=== PATIENT | male | born 1945 | race Caucasian/White ===

== ENCOUNTER 2016-03-30 19:04 | Inpatient (IN) | payer MEDICARE, OTHER ==
[~2016-03-30] VITALS: Ht 170.2 cm; Wt 65.6 kg
[2016-03-30 19:09] VITALS: BP 139/91
[2016-03-30 19:30] LABS: URINE BLOOD TRACE-LYSED (NEG)
--- NOTE | 2016-03-30 19:30 | Emergency Room Report ---
History of Present Illness Time Seen by Urszula Presenting Problem in Triage Pt arrived:Walked Presenting Problem:PT COMPLAINING OF LOWER MIDDLE ABDOMINAL PAIN. PT STATES THAT IT STARTED THIS AM AND HAS GOTTEN WORSE THROUGHOUT THE DAY. PT STATES HE HAS ALSO BEEN VOMITTING. 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 N Clinical Suspician of Infection? N Mental Status: 1 - Regular (Normal Baseline) Sepsis Risk:Low Sepsis Risk Have you (or family members/close friends) recently traveled outside the [place]? N If Yes, where/when: Have you had exposure to infectious disease within the past month? N TB? Other? Specify: Source patient, RN notes reviewed Exam Limitations no limitations Comment comes to the ED with lower abdominal pain that started this morning and has gotten worse as the day has progressed. Also some vomiting but no diarrhea. History of Diverticulitis and this feels similar to that but he says he has been having problems with this for a year off and on Cardiac Chest Pain Chest pain indicative of cardiac No ALLERGIES Coded Allergies: Penicillins (03/30/16) Sulfa (Sulfonamide Antibiotics) (03/30/16) Home Medications Reported Medications No Known Home Medications History Medical History General CAD? No Angina: No [place]: No Hypertension? No Hyperlipidemia? Yes CHF? No DVT? No PE? No COPD? No Asthma? No Anemia? No GERD? No Gastric ulcers? No GI Bleed? No Hernia? No Thyroid Problems? No Hypothyroidism? No CVA? No Seizures? No Diabetes? No Renal Insuffiency? No End Stage Renal Disease? No UTI? No Stones? No BPH? No GB Disease: No Nephritic Syndrome? No Asplenia? No Hepatitis? No Sickle Cell Disease? No Arthritis? No Migraines? No Cataracts? No Glaucoma? No MRSA? No HIV? No TB? No Anxiety? No Depression? No Cancer? No More? No Immunization Hx DT/Tetanus 1-4 Years Ago Surgical Hx Previous Surgery?Y LEFT THUMB AND WRIST TONSILS Social History Smoking Hx Smoker: Current Every Day Smoker Tobacco: Yes Type Cigarettes Packs/day < 1 Pack Are you/the child exposed to second-hand smoke: Yes Alcohol Alcohol: No Review of Systems All Other Systems Reviewed and Negative Constitutional see HPI Gastrointestinal see HPI Physical Exam Vital Signs Vital Signs Date Time Temp Pulse Resp B/P Pulse O2 O2 Flow FiO2 Ox Delivery Rate 03/30 2159 94 18 136/72 98 03/30 2049 91 18 156/81 95 03/30 1956 16 03/30 1909 99.9 92 18 139/91 97 General Appearance normal appearance, WD/WN, mild distress Respiratory Status No: respiratory distress. Cardiovascular normal exam, regular rate/rhythm Gastrointestinal rebound, tenderness (in lower abdomen ) Neurologic alert, lockstitch front maker II-XII nml as tested, normal exam Medical Decision Making LABS/Meds/Orders Pt receiving controlled substance in ED? Yes Neymar was queried for this patient? Yes Reference #: [id number] Results/Orders Laboratory Tests 03/30/162125: Lactic Acid 1.9 03/30/161929: Sodium 144, Potassium 4.6, Chloride 109 H, Carbon Dioxide 27, BUN 17, Creatinine 1.3, Estimated Creat Clear 48 L, Estimated GFR (MDRD) 55, Glucose 106, Calcium 8.8, Total Bilirubin 0.6, AST 12 L, ALT 24, Alkaline Phosphatase 131 H, Total Protein 7.0, Albumin 3.6, Globulin 3.4 H, Albumin/Globulin Ratio 1.1, Amylase 94, Lipase 183, WBC 17.0 H, RBC 4.76, Hgb 15.2, Hct 44.9, MCV 94.4 , RDW 14.2, Plt Count 208, Gran % 89.7 H, Gran # 15.2 H, Total Counted 100, Lymphocytes % 7.6 L, Monocytes % 2.7, Neutrophils 84 H, Band Neutrophils 9 H, Lymphocytes (Manual) 5 L, Lymphocytes # 1.3, Monocytes (Manual) 2, Monocytes # 0.5, RBC/WBC/PLT Morphology NORMAL, Platelet Estimate NORMAL, PUBS MCHC 33.9, MCH 31.9 H 03/30/161914: Urine Color YELLOW, Urine Appearance CLEAR, Urine pH 7.0, Ur Specific [place] 1.020, Urine Protein 1+ H, Urine Ketones NEGATIVE, Urine Blood TRACE-LYSED, Urine Nitrate NEGATIVE, Urine Bilirubin 1+ H, Urine Urobilinogen 1.0, Ur Leukocyte Esterase NEGATIVE, Urine RBC 3-5, Urine WBC OCC, Ur Squamous Epith Cells NONE, Urine Bacteria TRACE, Urine Mucus 4+, Urine Glucose NEGATIVE Current Medication Orders Sig/[place] Start time Last Medication Dose Route Stop Time Status Admin Levofloxacin/Dextrose 100 ML .STK-MED ONE 03/30 2126 DC IV Levofloxacin/Dextrose 100 ML ONCE ONE 03/30 2114 DCr 03/30 IV 03/30 Metronidazole 100 ML ONCE ONE 03/30 2114 DC IV 03/30 2213 Diatrizoate Meglum/ 30 ML ONCE ONE 03/30 2044 DC 03/30 Diatrizoate Sod PO 03/30 Sodium Chloride 1,000 ML .Q1H1M 03/30 2044 DC 03/30 IV 03/30 Sodium Chloride 10 ML PRN PRN 03/30 2044 AC IV 03/31 2036 Sodium Chloride 1,000 ML .Q8H 03/30 2044 AC IV 03/31 0837 Sodium Chloride 10 ML PRN PRN 03/30 2044 AC IV 03/31 2036 Sodium Chloride 1,000 ML .STK-MED ONE 03/30 2039 DC IV Diatrizoate Meglum/ 0 .STK-MED ONE 03/30 2038 DC Diatrizoate Sod .ROUTE Sodium Chloride 1,000 ML .STK-MED ONE 03/30 1953 DC IV Morphine Sulfate 0 .STK-MED ONE 03/30 1952 DC .ROUTE Ondansetron HCl 0 .STK-MED ONE 03/30 1952 DC .ROUTE Morphine Sulfate 2 MG ONCE ONE 03/30 1944 DC 03/30 IV 03/30 Ondansetron HCl 4 MG ONCE ONE 03/30 1944 CAN IV 03/30 1945 Ondansetron HCl 4 MG ONCE ONE 03/30 1929 DC 03/30 IV 03/30 Sodium Chloride 10 ML PRN PRN 03/30 1929 AC IV 03/31 1920 Sodium Chloride 1,000 ML .Q1H1M 03/30 1929 DC 03/30 IV 03/30 Orders Procedure Date/time Status DIET-NOTHING BY MOUTH 03/31 B Active CULTURE, BLOOD 03/30 2112 Active LACTIC ACID 03/[address] ABD & PELVIS W/ CONTRAST 03/[address] ABD/PELVIS REQ 03/[address] ABD & PELVIS W/O CONTRAST 03/30 1930 Active DIFFERENTIAL-WBC 03/[address] ABD/PELVIS REQ 03/30 1921 Complete IV SALINE LOCK 03/30 1921 Active URINALYSIS/COMPLETE 03/30 1921 Complete LIPASE 03/30 1921 Complete CBC WITH AUTO DIFF 03/30 1921 Complete CHEM 12 PROFILE 03/30 1921 Complete AMYLASE 03/30 1921 Complete XRAY/CT/US XRAY/CT/US CT abdomen, pelvis CT interpretation by discussed w/radiologist Time results known: 2107 CT Results aBNORMAL ILL-DEFINED, 2.5 CM FOCUS OF SOFT TISSUE ATTENUATION AND FAT abnormal, ill-defined 2.5 cm focus of soft tissue attentuation and fat stranding within the posterior aspect of the mid pelvis. Findings may represent infectious/inflammatory process such as residual infection/inflammation from prior diverticulitis, but a neoplastic process such as carcinoid or desmoplastic tumor possible. Recommend further evaluation. Incidental non-acute findings as described above. Departure Departure Time of Disposition 2218 Disposition DC Home or Self Care(routine) Clinical Impression Primary Impression: Acute diverticulitis Condition STABLE Referrals Renato Lim MD (Family) Additional Instructions Admit to Dr. Lim to OBS...complete CT with IV and oral contrast...continue antibiotics and IVF's Discharge Counseling Counseled pt/family regarding diagnosis, test results, follow up needs Prescriptions Current Visit Scripts No Known Home Medications ED Critical Care Critical Care No If Critical Care minutes are documented, the time involved in the performance of seperately reportable procedures was not counted toward critical care time documented. I directly delivered medical care to this critically ill and/or injured patient. Timely evaluation and treatment was necessary to address the significant organ system(s) dysfunction present in this patient. at 2221
[2016-03-30 19:31] LABS: URINE BILIRUBIN - DIPSTICK 1+ (NEG)
[2016-03-30 19:41] LABS: HEMOGLOBIN 15.2 g/dL (14.1-18.0)
[2016-03-30 19:42] LABS: LYMPH # 1.3 K/mm3 (0.7-4.5); LYMPH % 7.6 % (10-50)
[2016-03-30 20:00] LABS: NEUTROPHILS 84 % (42-76)
[2016-03-30 23:12] VITALS: BP 153/76
[2016-03-30 23:22] VITALS: BP 153/76
[2016-03-31 05:13] VITALS: BP 127/76
--- NOTE | 2016-03-31 07:46 | RADIOLOGY REPORT PS360 ---
CT ABD PELVIS W/O CONTRAST CLINICAL INDICATION: Lower abdominal pain with vomiting LOWER ABD PAIN, VOMITING ORDERING PHYSICIAN: Barrera Osorio MD PATIENT AGE: 70 years COMPARISON: None TECHNIQUE: Axial images obtained with sagittal and coronal reformats. PROCEDURE: Oral Contrast: None IV Contrast: None . FINDINGS: Lower thorax: Dependent changes ABDOMEN: Liver: No masses or biliary dilatation. Gallbladder: Nondistended. No radio opaque stones. Pancreas: No masses or peripancreatic fluid collections. Spleen: Unremarkable. Adrenals: Unremarkable Kidneys/ureters: Bilateral renal cyst. Nonobstructing bilateral renal calculi Stomach bowel: Colonic diverticulosis. There is mild diffuse thickening of the sigmoid colon with stranding of the pericolic fat consistent with diverticulitis. In addition, there is ill-defined increased density superior to the sigmoid colon anterior to the lumbosacral junction. This region measures approximately 5 x 3 cm probably related to phlegmonous changes from the diverticulitis. A mesenteric mass cannot be excluded and follow-up is recommended. There are mildly distended fluid-filled loops of small bowel probably related to ileus. A definite transition point is not identified Appendix: No evidence of appendicitis. PELVIS: Reproductive: Unremarkable Bladder: Nondistended. No obvious stones or masses. ABDOMEN & PELVIS: Peritoneum: See above Lymph nodes: No enlarged lymph nodes apparent. Vasculature: No evidence of abdominal aortic aneurysm. No retroperitoneal hemorrhage evident. Bones: No acute fracture IMPRESSION: 1. Diverticulosis with thickening of the sigmoid colon and stranding of the pericolic fat consistent with diverticulitis. No free air. 2. Ill-defined 5 cm soft tissue density superior to the sigmoid colon in the presacral region which may be related to phlegmonous change from the adjacent diverticulitis. Neoplastic process such as carcinoid or desmoplastic tumor is included in differential diagnosis. Follow-up recommended following appropriate treatment for diverticulitis. No definite abscess. 3. Mildly prominent small bowel loops probably related to ileus
--- NOTE | 2016-03-31 07:55 | HISTORY AND PHYSICAL REPORT ---
Demographics: Admit date: 03/30/16 Chief complaint: Abdominal pain PRIMARY DIAGNOSIS: ACUTE DIVERTICULITIS Allergies: Coded Allergies: Penicillins (03/30/16) Sulfa (Sulfonamide Antibiotics) (03/30/16) History of present illness: History of present illness: 70-year-old male with history of anxiety and hypertension presented to the emergency department after onset of abdominal pain at 4 PM yesterday. Patient describes intense crampy abdominal pain located in the lower abdomen. He had one episode of vomiting. He felt nauseous. He did not have any diarrhea and bowel movements have been normal. He does not believe he had any fevers but his describes the patient as experiencing rigors. Patient was evaluated in the emergency department and had abdominal tenderness and an elevated white blood cell count. Noncontrasted CT showed questionable inflammatory/infectious process versus a mass in the mid sigmoid colon. Patient has not had a colonoscopy. CT scan was repeated with IV contrast and second CT has been interpreted as an inflammatory and infectious process and neoplasm is less likely. Patient was admitted and treated for diverticulitis with IV Levaquin and Flagyl. Patient reports a similar episode of abdominal pain about 6 months ago for which she was treated with 2 weeks of doxycycline and symptoms improved. Past medical history: Family HX Family Hx Insignificant No Immunization HX DT/Tetanus 1-4 Years Ago Flu Refused Pneumonia Refuses TB Test in last year Yes Result Negative General CAD? No Angina: No [place]: No Hypertension? No Hyperlipidemia? Yes CHF? No DVT? No PE? No COPD? No Asthma? No Anemia? No GERD? No Gastric ulcers? No GI Bleed? No Hernia? No Thyroid Problems? No Hypothyroidism? No CVA? No Seizures? No Diabetes? No Renal Insuffiency? No UTI? No Stones? No BPH? No GB Disease: No Nephritic Syndrome? No Asplenia? No Hepatitis? No Sickle Cell Disease? No Arthritis? No Migraines? No Cataracts? No Glaucoma? No MRSA? No HIV? No TB? No Anxiety? No Depression? No Cancer? No More? No Past Surgical HX Previous Surgery?Y LEFT THUMB AND WRIST TONSILS Current home meds: Reported Medications No Known Home Medications Social Hx: Smoking HX Tobacco Yes Type Cigarettes Packs/day < 1 PACK Are you/the child exposed to second-hand smoke: Yes Alcohol Alcohol: No Hx of Drug Use Drug Use? No Patien't marital status is Patient's support system is good Review of systems: Constitutional see HPI. Respiratory no symptoms reported. Cardiovascular no symptoms reported Gastrointestinal/Abdominal see HPI Genitourinary no symptoms reported. Musculoskeletal no symptoms reported. Neurological Yes: no symptoms reported. Exam: Lab data for last 24 hours: Laboratory Tests 03/31/16 0540: Sodium 144, Potassium 4.5, Chloride 113 H, Carbon Dioxide 28, BUN 15, Creatinine 1.3, Estimated Creat Clear 50, Estimated GFR (MDRD) 55, Glucose 118 H, Calcium 7.9 L 03/30/162125: Lactic Acid 1.9 03/30/161929: Sodium 144, Potassium 4.6, Chloride 109 H, Carbon Dioxide 27, BUN 17, Creatinine 1.3, Estimated Creat Clear 48 L, Estimated GFR (MDRD) 55, Glucose 106, Calcium 8.8, Total Bilirubin 0.6, AST 12 L, ALT 24, Alkaline Phosphatase 131 H, Total Protein 7.0, Albumin 3.6, Globulin 3.4 H, Albumin/Globulin Ratio 1.1, Amylase 94, Lipase 183, WBC 17.0 H, RBC 4.76, Hgb 15.2, Hct 44.9, MCV 94.4 , RDW 14.2, Plt Count 208, Gran % 89.7 H, Gran # 15.2 H, Total Counted 100, Lymphocytes % 7.6 L, Monocytes % 2.7, Neutrophils 84 H, Band Neutrophils 9 H, Lymphocytes (Manual) 5 L, Lymphocytes # 1.3, Monocytes (Manual) 2, Monocytes # 0.5, RBC/WBC/PLT Morphology NORMAL, Platelet Estimate NORMAL, PUBS MCHC 33.9, MCH 31.9 H 03/30/161914: Urine Color YELLOW, Urine Appearance CLEAR, Urine pH 7.0, Ur Specific [place] 1.020, Urine Protein 1+ H, Urine Ketones NEGATIVE, Urine Blood TRACE-LYSED, Urine Nitrate NEGATIVE, Urine Bilirubin 1+ H, Urine Urobilinogen 1.0, Ur Leukocyte Esterase NEGATIVE, Urine RBC 3-5, Urine WBC OCC, Ur Squamous Epith Cells NONE, Urine Bacteria TRACE, Urine Mucus 4+, Urine Glucose NEGATIVE Microbiology 03/30 2125 BLOOD: Anaerobic Blood Culture - RECD 03/30 2125 BLOOD: Aerobic Blood Culture - RECD 03/30 2125 BLOOD: Anaerobic Blood Culture - RECD 03/30 2125 BLOOD: Aerobic Blood Culture - RECD 03/30 2109 BLOOD: Anaerobic Blood Culture - CAN Cancelled: Cancelled via OE: ALREADY ORDERED 03/30 2109 BLOOD: Aerobic Blood Culture - CAN Cancelled: Cancelled via OE: ALREADY ORDERED 03/30 2106 BLOOD: Anaerobic Blood Culture - CAN Cancelled: Cancelled via OE: ALREADY ORDERED 03/30 2106 BLOOD: Aerobic Blood Culture - CAN Cancelled: Cancelled via OE: ALREADY ORDERED Admission vital signs: 1ST Vital Signs Result Date Time Pulse Ox 97 03/30 1908 B/P 139/91 03/30 1908 Temp 99.9 03/30 1908 Pulse 92 03/30 1908 Resp 18 03/30 1908 O2 Delivery ROOM AIR 03/30 2311 Exam General appearance: normal appearance, alert, awake Eyes: normal exam, anicteric ENT: normal exam, mucous membranes moist Cardiovascular: normal exam Respiratory: normal exam, clear to auscultation ABD: non-distended, soft, abnormal bowel sounds (hypoactive), tenderness ( LEFT lower quadrant, suprapubi), no rebound tenderness Extremities: normal exam Plan: Problem List 1. Acute diverticulitis Plan: 1. IV Levaquin and Flagyl 2. DC morphine as this is been ineffective and use Tylenol 3 as this is what patient used before for pain control with his previous bout of diverticulitis 3. He will need an outpatient colonoscopy 4. Continue IV fluids and clear liquid diet at 0755
[2016-03-31 08:01] LABS: HEMOGLOBIN 12.5 g/dL (14.1-18.0); LYMPH # 1.9 K/mm3 (0.7-4.5); LYMPH % 14.4 % (10-50)
[2016-03-31 08:13] VITALS: BP 132/75
[2016-03-31 08:41] VITALS: BP 132/75
--- NOTE | 2016-03-31 09:01 | RADIOLOGY REPORT PS360 ---
CT ABD PELVIS W/ CONTRAST CLINICAL INDICATION: Lower abdominal pain with vomiting. Follow-up abnormal unenhanced CT scan ABNORMAL CT SCAN ORDERING PHYSICIAN: Renato Lim MD PATIENT AGE: 70 years COMPARISON: None TECHNIQUE: Axial images obtained with sagittal and coronal reformats. PROCEDURE: Oral Contrast: Redicat IV Contrast: 75 mL [id number] . FINDINGS: Lung bases are clear of consolidation. Dependent changes are present. Small hiatal hernia. Gallbladder somewhat distended and there is minimal prominence of the biliary radicals intrahepatic. The adrenal glands, pancreas, spleen, has an unremarkable appearance. Bilateral renal cysts with nonobstructing renal calculi. There is thickening of the sigmoid colon once again noted in the mid pelvic region with stranding of the pericolic fat and diffuse diverticulosis. These findings are consistent with diverticulitis. Superior to the sigmoid colon in the presacral region there is an ill-defined area of increased density which does show some minor contrast enhancement probably related to phlegmonous changes from the diverticulitis chest in. To this region. Small hyperdense diverticula is noted in the mid abdomen extending off of the sigmoid:. No definite abscess. Prostate is mildly enlarged. Mildly prominent small bowel loops noted probably related to ileus. Contrast does traverse into the colon but has not yet made it to the sigmoid region. No free air evident. IMPRESSION: 1. Acute diverticulitis of the sigmoid colon. 2. 5 cm ill-defined area of soft tissue density superior to the sigmoid colon ill-defined in nature probably related to phlegmonous change from the underlying diverticulitis. Convalescent exam recommended as neoplasm could have a similar appearance. 3. Distended gallbladder with mild dilatation of the intrahepatic biliary radicles
--- NOTE | 2016-03-31 11:48 | PHARMACY CLINIC NOTE ---
Patient Demographics Patient Demographics Admission date: 03/30/16 Date: 03/31/16 Time: 1147 Allergies Coded Allergies: Penicillins (03/30/16) Sulfa (Sulfonamide Antibiotics) (03/30/16) HEIGHT- FT: 5 IN: 7.00 K.573 VTE General Information Labs: Laboratory Tests 03/31 03/30 0540 1930 Hematology Hgb (14.1 - 18.0 g/dL) 12.5 L 15.2 Hct (42.0 - 52.0 %) 37.8 L 44.9 Plt Count (142 - 424 K/mm3) 173 208 Disclaimer The following section includes nursing documentation that has been pulled in for pharmacy review. Patient's VTE score: 1 Patient's VTE Risk: VERY LOW RISK Clinical trial participant? No VTE prophylaxis NQF [id number] VTE prophylaxis ordered? Yes Type of prophylaxis/treatment: HERACLIO at 1149
[2016-03-31 14:00] VITALS: BP 157/75
[2016-03-31 19:30] VITALS: BP 165/81
[2016-03-31 21:05] VITALS: BP 165/81
[2016-04-01 04:03] VITALS: BP 155/88; BP 161/78
[2016-04-01 06:53] LABS: HEMOGLOBIN 12.1 g/dL (14.1-18.0)
[2016-04-01 06:54] LABS: LYMPH # 1.4 K/mm3 (0.7-4.5); LYMPH % 15.5 % (10-50)
--- NOTE | 2016-04-01 07:10 | ACUTE CARE PROGRESS NOTE (QUA) ---
Progress Notes Subjective Date 04/01/16 Time 0709 Note Patient feels better with less abdominal soreness. He is remained afebrile. He looks well and is ambulating about the room. Lungs are clear. Heart has a regular rate and rhythm. Abdomen is soft with minimal lower quadrant tenderness. Patient is improving and will be discharged home to finish outpatient antibiotics. Follow-up in the office later this week Objective Findings Last VS-Temp:98.5 B/P:155/88 Pulse:77 Resp:16 SaO2:92 ROOM AIR Last weight lbs:144 oz:9 K.573 Method:Bed Scales Laboratory Tests 04/01/16 0610: WBC 9.1, RBC 3.81 L, Hgb 12.1 L, Hct 36.6 L, MCV 96.1, RDW 14.5, Plt Count 127 L, Gran % 80.9 H, Gran # 7.4, Lymphocytes % 15.5, Monocytes % 3.6, Lymphocytes # 1.4, Monocytes # 0.3, PUBS MCHC 33.1, MCH 31.8 H Assessment/Plan Problem List 1. Acute diverticulitis Patient condition Improving Plan: initiate discharge plan This inpt stay is expected to cross 2 MNs from start of care Yes at 0709
--- NOTE | 2016-04-01 07:11 | Discharge Summary ---
Demographics Admit date: 03/30/16 Discharge date: 04/01/16 Discharge diagnoses Problem List 1. Acute diverticulitis History of present illness History of present illness 70-year-old male with history of anxiety and hypertension presented to the emergency department after onset of abdominal pain at 4 PM yesterday. Patient describes intense crampy abdominal pain located in the lower abdomen. He had one episode of vomiting. He felt nauseous. He did not have any diarrhea and bowel movements have been normal. He does not believe he had any fevers but his describes the patient as experiencing rigors. Patient was evaluated in the emergency department and had abdominal tenderness and an elevated white blood cell count. Noncontrasted CT showed questionable inflammatory/infectious process versus a mass in the mid sigmoid colon. Patient has not had a colonoscopy. CT scan was repeated with IV contrast and second CT has been interpreted as an inflammatory and infectious process and neoplasm is less likely. Patient was admitted and treated for diverticulitis with IV Levaquin and Flagyl. Patient reports a similar episode of abdominal pain about 6 months ago for which she was treated with 2 weeks of doxycycline and symptoms improved. Patient was admitted and placed on Levaquin and Flagyl. Over the course of 48 hours his abdomen went from severely tender with decreased bowel sounds to minimal tenderness with active bowel sounds. Patient began having bowel movements. He did not have any fevers. White count was elevated on admission and the day of discharge was 9000. Once patient's tenderness improved and he was tolerating diet he was discharged home. Patient will follow-up in the office on of this week. Tylenol No. 3 was used for pain control Medications Medications: Discharge meds are as noted. Follow up Follow up in office in: 5 DAYS with: Renato Lim MD at 0711
[2016-04-01] MEDS ORDERED: CIPRO 500MG TA500 MG PO (07:12)
[2016-04-01] MEDS ORDERED: FLAGYL 500MG.500 MG PO (07:12)
[2016-04-01] MEDS ORDERED: TYLENOL WITH CO1 TA1 PO (07:13)
[2016-04-01 08:00] VITALS: BP 157/83
[2016-04-01 10:27] VITALS: BP 157/83
== END 2016-04-01 08:30 | disposition home or self-care (01) | DRG 392 ==
LOC: ER 19:04 → 2ND 22:25
PROVIDERS: Family Medicine; General Practice
DX: K57.92 Diverticulitis of intestine, part unspecified, without perforation or abscess without bleeding (principal); I10 Essential (primary) hypertension
CPT/HCPCS: J2405; Q9967

== ENCOUNTER 2016-04-08 20:34 | Inpatient (IN) | payer MEDICARE, OTHER ==
[~2016-04-08] VITALS: Ht 170.2 cm; Wt 64.0 kg
[~2016-04-08 20:34] MED LIST: CIPRO 500MG TA500 MG PO; FLAGYL 500MG.500 MG PO; TYLENOL WITH CO1 TA1 PO
[2016-04-08 20:42] VITALS: BP 150/90
--- NOTE | 2016-04-08 21:08 | Emergency Room Report ---
History of Present Illness Time Seen by [id number] Presenting Problem in Triage Pt arrived:Walked Presenting Problem:PT STATES HE HAS BEEN VOMITING FOR TWO DAYS, HE HAS NOT BEEN ABLE TO KEEP FLUIDS OR FOOD DOWN, STATES HE WAS IN TO SEE THE DR SATURDAY FOR A HERNIA AND STATES HE HAS A FOLLOW UP APPT FOR THAT SATURDAY MORNING. PT IS HAVING LOWER ABDOMINAL PAIN AT THE UMBILICUS INTERMITTENTLY PAIN IS A 10/10. Onset of symptoms date/time:04/02/16 or onset unknown for: Treatment Prior to Arrival: [employer] Provided by: Sepsis Risk Assessment: Temp: 98.6 B/P: 150/90 MAP: 110 Pulse: 74 Resp: 18 Recent fever? N Clinical Suspician of Infection? N Mental Status: 1 - Regular (Normal Baseline) Sepsis Risk:Low Sepsis Risk Have you (or family members/close friends) recently traveled outside the [place]? N If Yes, where/when: Have you had exposure to infectious disease within the past month? N TB? Other? Specify: Source patient, RN notes reviewed, family, old records Exam Limitations no limitations Comment pt with recent admit for diverticulitis and had been doing ok but over the last 24 hrs more pain and dec po intake with vomiting- no fever Cardiac Chest Pain Chest pain indicative of cardiac No Timing/Duration this evening Severity moderate ALLERGIES Coded Allergies: Penicillins (03/30/16) Sulfa (Sulfonamide Antibiotics) (03/30/16) Home Medications Active Scripts Ciprofloxacin HCl (Cipro 500MG TAB) 500 MG PO BID #20 TAB Prov: 04/01/16 METRONIDAZOLE (Metronidazole) 500 MG PO TID #30 TAB Prov: 04/01/16 ACETAMINOPHEN WITH CODEINE (Tylenol With Codeine #3 Tablet) 1-2 TAB PO Q6HP PRN pain #30 TAB Prov: 04/01/16 History Medical History General CAD? No Angina: No HI: No Hypertension? No Hyperlipidemia? Yes CHF? No DVT? No PE? No COPD? No Asthma? No Anemia? No GERD? No Gastric ulcers? No GI Bleed? No Hernia? No Thyroid Problems? No Hypothyroidism? No CVA? No Seizures? No Diabetes? No Renal Insuffiency? No End Stage Renal Disease? No UTI? No Stones? No BPH? No GB Disease: No Nephritic Syndrome? No Asplenia? No Hepatitis? No Sickle Cell Disease? No Arthritis? No Migraines? No Cataracts? No Glaucoma? No MRSA? No HIV? No TB? No Anxiety? No Depression? No Cancer? No More? No Immunization Hx DT/Tetanus 1-4 Years Ago Flu Refused Pneumonia Refuses Surgical Hx Previous Surgery?Y LEFT THUMB AND WRIST TONSILS Social History Smoking Hx Smoker: Current Every Day Smoker Tobacco: Yes Type Cigarettes Packs/day < 1 Pack Alcohol Alcohol: No Drugs none Review of Systems All Other Systems Reviewed and Negative Constitutional see HPI, denies fever, other Eyes denies drainage ENT denies: ear discharge, epistaxis, throat pain. Respiratory denies cough, denies shortness of breath, denies wheezing Cardiovascular denies chest pain, denies palpitations, denies syncope Gastrointestinal see HPI, abdominal pain, denies diarrhea, nausea, vomiting Genitourinary denies: dysuria, frequency, hesitancy, hematuria. Musculoskeletal denies back pain, denies joint pain, denies joint swelling, denies neck pain Skin denies rash Psychiatric/Neurological denies headache, denies seizure Physical Exam Vital Signs Vital Signs Date Time Temp Pulse Resp B/P Pulse O2 O2 Flow FiO2 Ox Delivery Rate 04/08 2041 98.6 74 18 150/90 95 - WBC >12,000 or <4,000 or 10% bands? 2 or more SIRS Criteria Met? B/P:161/88 MAP:110 Creatinine >2.0? UA output<0.5ml/kg/hr for 2 hrs? Platelet count >100,000? Lactate >2.0mmol/1? INR >1.2 or PTT > than 60 sec? Evidence of Organ Dysfunction? Provider documented clinical suspician of infection? N Sepsis Criteria Count: 0 Sepsis Risk: Low Sepsis Risk General Appearance no apparent distress Eye Exam - bilateral eye PERRL, bilateral eye EOMI Ear, Nose, Throat normal ENT inspection Neck supple Respiratory Status No: respiratory distress. Lung Sounds bilateral: lungs clear. 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 No Results/Orders Laboratory Tests 04/08/162114: Sodium 139, Potassium 4.4, Chloride 102, Carbon Dioxide 31, BUN 12, Creatinine 1.3, Estimated Creat Clear 51, Estimated GFR (MDRD) 55, Glucose 113 H, Calcium 8.8, Total Bilirubin 0.4, AST 12 L, ALT 24, Alkaline Phosphatase 121 H, Total Protein 6.5, Albumin 2.9 L, Globulin 3.6 H, Albumin/Globulin Ratio 0.8 L, Lipase 78, WBC 12.6 H, RBC 4.68, Hgb 14.2, Hct 44.3, MCV 94.6, RDW 13.1, Plt Count 514 H, MPV 8.8, Gran % 80.6 H, Gran # 10.1 H, Lymphocytes % 12.5, Monocytes % 5.8, Eosinophils % 0.7, Basophils % 0.5, Lymphocytes # 1.6, Monocytes # 0.7, Eosinophils # 0.1, Basophils # 0.1, PUBS MCHC 32.1, MCH 30.4 Current Medication Orders Sig/Chio Start time Last Medication Dose Route Stop Time Status Admin Levofloxacin/Dextrose 100 ML ONCE ONE 04/08 2214 r IV 04/08 2313 Metronidazole 100 ML ONCE ONE 04/08 2214 AC 04/08 IV 04/08 Metronidazole 100 ML .STK-MED ONE 04/08 2206 DC IV Ondansetron HCl 4 MG ONCE ONE 04/08 2114 DC 04/08 IV 04/08 Sodium Chloride 1,000 ML .Q1H1M 04/08 2114 DC 04/08 IV 04/08 Sodium Chloride 10 ML PRN PRN 04/08 2114 AC IV 04/09 2101 Sodium Chloride 1,000 ML .STK-MED ONE 04/08 2104 DC IV Ondansetron HCl 0 .STK-MED ONE 04/08 2103 DC .ROUTE Sodium Chloride 10 ML PRN PRN 04/08 2099 AC IV 04/09 2099 Orders Procedure Date/time Status DIET-NOTHING BY MOUTH 04/09 B Active Decision to admit 04/[address] ABD & PELVIS W/O CONTRAST 04/[address] ABD/PELVIS REQ 04/08 2101 Complete IV SALINE LOCK 04/08 2101 Active LIPASE 04/08 2101 Complete COMPLETE METABOLIC PANEL 04/08 2101 Complete CBC WITH AUTO DIFF 04/08 2101 Complete XRAY/CT/US XRAY/CT/US CT abdomen, pelvis CT interpretation by discussed w/radiologist Time results known: 2223 CT Results abnormal (see report) Departure Departure Time of Disposition 2203 Disposition Still a Patient Clinical Impression Primary Impression: Diverticulitis large intestine Qualifiers: Diverticulitis bleeding: without bleeding Diverticulitis complication: with abscess Qualified Code: K57.20 - Diverticulitis of large intestine with perforation and abscess without bleeding Secondary Impressions: SBO (small bowel obstruction) Umbilical hernia Qualifiers: Obstruction and gangrene presence: without obstruction or gangrene Qualified Code: K42.9 - Umbilical hernia without obstruction or gangrene Condition STABLE Referrals Renato Lim MD (Family) discussed with dr martinze WONG Critical Care Critical Care No at [id number]
[2016-04-08 21:33] LABS: HEMOGLOBIN 14.2 g/dL (14.1-18.0); LYMPH # 1.6 K/mm3 (0.7-4.5); LYMPH % 12.5 % (10-50)
[2016-04-08 22:59] VITALS: BP 170/90
[2016-04-08 23:08] VITALS: BP 170/90
[2016-04-08] MEDS ORDERED: PROMETHAZINE HC25 M1 PO (23:27)
[2016-04-09 03:17] VITALS: BP 126/71
--- NOTE | 2016-04-09 05:12 | RADIOLOGY REPORT PS360 ---
CT ABD PELVIS W/O CONTRAST CLINICAL INDICATION: Periumbilical pain, diverticulitis ABD PAIN ORDERING PHYSICIAN: Renato Lim MD PATIENT AGE: 70 years COMPARISON: 03/30/2016 TECHNIQUE: Axial images obtained with sagittal and coronal reformats. PROCEDURE: Oral Contrast: None IV Contrast: None . FINDINGS: Lower thorax: Mild atelectatic changes ABDOMEN: Liver: No masses or biliary dilatation. Gallbladder: The gallbladder wall appears somewhat thickened Pancreas: No masses or peripancreatic fluid collections. Spleen: Unremarkable. Adrenals: Unremarkable Kidneys/ureters: Renal cyst. No hydronephrosis. Stomach bowel: There is dilated small bowel with air-fluid levels consistent with small bowel obstruction moderate grade. There is a small amount gas in a few air-fluid levels in the large bowel. There is diffuse diverticulosis with thickening of the wall the sigmoid colon and stranding of the pericolic fat consistent with diverticulitis as previously described. There is a 5 cm abscess in the mid to lower abdomen/upper pelvic region centrally corresponding to the previously noted area of phlegmonous change. There is an air-fluid level in this region. There is moderate stranding of the fat in this area with phlegmonous changes. The small bowel is dilated to this region with decompression of the small bowel distal to this area. Terminal ileum is not dilated. Appendix: No evidence of appendicitis. PELVIS: Reproductive: Unremarkable Bladder: Mild thickening of the urinary bladder wall ABDOMEN & PELVIS: Peritoneum: Trace free fluid in the pelvis. Air-fluid level in the lower abdomen consistent with an abscess measuring approximately 5 x 4 cm. This is NOT amenable to percutaneous drainage due to overlying bowel loops. There is tiny umbilical hernia containing fat Lymph nodes: No enlarged lymph nodes apparent. Vasculature: No evidence of abdominal aortic aneurysm. No retroperitoneal hemorrhage evident. Bones: No acute fracture IMPRESSION: 1. 5 cm diverticular abscess in the lower abdomen centrally. This is NOT amenable to percutaneous drainage. 2. Small bowel obstruction. 3. Diverticulitis 4. Mild thickening of the gallbladder wall
[2016-04-09 06:59] LABS: LYMPH % 18.3 % (10-50)
--- NOTE | 2016-04-09 07:17 | HISTORY AND PHYSICAL REPORT ---
Demographics: Admit date: 04/08/16 Chief complaint: Abdominal pain and swelling PRIMARY DIAGNOSIS: DIVERTICULITIS Allergies: Coded Allergies: Penicillins (03/30/16) Sulfa (Sulfonamide Antibiotics) (03/30/16) History of present illness: History of present illness: 70-year-old male with recent 48 hour hospitalization at [facility] for diverticulitis return to the emergency department on April 08 with complaint of increasing abdominal pain and distention with multiple episodes of vomiting throughout the day when trying to take his antibiotics for diverticulitis. Workup in the emergency department revealed a small bowel obstruction in addition to a diverticular abscess. Patient has been readmitted for IV antibiotics and bowel rest. He tells me that he has not had a bowel movement in 48 hours and denies flatus during this time as well. Vomiting and only developed over the last 24 hours. Past medical history: Family HX Family Hx Insignificant No Diabetes Yes CAD Yes Hypertension Yes Hyperlipidemia No Cancer No TB Yes Immunization HX DT/Tetanus > 10 Years Ago Flu 2015-FSN Pneumonia Never Had TB Test in last year No General CAD? No Angina: No NE: No Hypertension? No Hyperlipidemia? Yes CHF? No DVT? No PE? No COPD? No Asthma? No Anemia? No GERD? No Gastric ulcers? No GI Bleed? No Hernia? No Thyroid Problems? No Hypothyroidism? No CVA? No Seizures? No Diabetes? No Renal Insuffiency? No UTI? No Stones? No BPH? No GB Disease: No Nephritic Syndrome? No Asplenia? No Hepatitis? No Sickle Cell Disease? No Arthritis? No Migraines? No Cataracts? No Glaucoma? No MRSA? No HIV? No TB? No Anxiety? No Depression? No Cancer? No More? No Past Surgical HX Previous Surgery?Y LEFT THUMB AND WRIST TONSILS Current home meds: Active Scripts Ciprofloxacin HCl (Cipro 500MG TAB) 500 MG PO BID #20 TAB Prov: 04/01/16 METRONIDAZOLE (Metronidazole) 500 MG PO TID #30 TAB Prov: 04/01/16 ACETAMINOPHEN WITH CODEINE (Tylenol With Codeine #3 Tablet) 1-2 TAB PO Q6HP PRN pain #30 TAB Prov: 04/01/16 Reported Medications PROMETHAZINE HCL (Promethazine 25mg Tab) (Unknown Dose) PO Q4HP PRN N/V Social Hx: Smoking HX Tobacco Yes Type Cigarettes Packs/day < 1 PACK Are you/the child exposed to second-hand smoke: Yes Alcohol Alcohol: No Hx of Drug Use Drug Use? No Review of systems: Constitutional malaise. No: chills, diaphoresis, fever. Respiratory no symptoms reported. Cardiovascular no symptoms reported Gastrointestinal/Abdominal see HPI Genitourinary no symptoms reported. Musculoskeletal no symptoms reported. Neurological Yes: no symptoms reported. Exam: Lab data for last 24 hours: Laboratory Tests 04/09/16 0600: WBC 10.7, RBC 4.19 L, Hgb 13.0 L, Hct 39.9 L, MCV 95.4, RDW 13.5, Plt Count 436 H, MPV 8.8, Gran % 73.8, Gran # 7.9, Lymphocytes % 18.3, Monocytes % 5.4, Eosinophils % 1.9, Basophils % 0.6, Lymphocytes # 2.0, Monocytes # 0.6, Eosinophils # 0.2, Basophils # 0.1, PUBS MCHC 32.5, MCH 31.0 04/08/162114: Sodium 139, Potassium 4.4, Chloride 102, Carbon Dioxide 31, BUN 12, Creatinine 1.3, Estimated Creat Clear 51, Estimated GFR (MDRD) 55, Glucose 113 H, Calcium 8.8, Total Bilirubin 0.4, AST 12 L, ALT 24, Alkaline Phosphatase 121 H, Total Protein 6.5, Albumin 2.9 L, Globulin 3.6 H, Albumin/Globulin Ratio 0.8 L, Lipase 78, WBC 12.6 H, RBC 4.68, Hgb 14.2, Hct 44.3, MCV 94.6, RDW 13.1, Plt Count 514 H, MPV 8.8, Gran % 80.6 H, Gran # 10.1 H, Lymphocytes % 12.5, Monocytes % 5.8, Eosinophils % 0.7, Basophils % 0.5, Lymphocytes # 1.6, Monocytes # 0.7, Eosinophils # 0.1, Basophils # 0.1, PUBS MCHC 32.1, MCH 30.4 Admission vital signs: 1ST Vital Signs Result Date Time Pulse Ox 95 04/08 2041 B/P 150/90 04/08 2041 Temp 98.6 04/08 2041 Pulse 74 04/08 2041 Resp 18 04/08 2041 O2 Delivery ROOM AIR 04/08 2308 Exam General appearance: normal appearance, alert, awake Eyes: normal exam, anicteric ENT: normal exam, mucous membranes moist Neck: normal inspection, non-tender, no carotid bruit, no JVD Cardiovascular: normal exam Respiratory: normal exam, clear to auscultation ABD: distended and firm with diminished bowel sounds. Abdomen is tender periumbilically and in the LEFT lower quadrant. Extremities: normal exam Neuro: normal exam, alert, no deficit Plan: Problem List 1. SBO (small bowel obstruction) 2. Umbilical hernia 3. Colonic diverticular abscess Plan: 1. NG tube for bowel obstruction 2. Levaquin and Flagyl for diverticular abscess 3. Surgical consult at 0717
[2016-04-09 07:31] VITALS: BP 158/86
--- NOTE | 2016-04-09 07:31 | PHARMACY CLINIC NOTE ---
Patient Demographics Patient Demographics Admission date: 04/08/16 Date: 04/09/16 Time: 0731 Allergies Coded Allergies: Penicillins (03/30/16) Sulfa (Sulfonamide Antibiotics) (03/30/16) HEIGHT- FT: 5 IN: 7.00 K.014 VTE General Information Labs: Laboratory Tests 04/09 04/08 0600 2115 Hematology Hgb (14.1 - 18.0 g/dL) 13.0 L 14.2 Hct (42.0 - 52.0 %) 39.9 L 44.3 Plt Count (142 - 424 K/mm3) 436 H 514 H Disclaimer The following section includes nursing documentation that has been pulled in for pharmacy review. Patient's VTE score: 1 Patient's VTE Risk: VERY LOW RISK Clinical trial participant? No VTE prophylaxis [id number] VTE prophylaxis ordered? Yes Type of prophylaxis/treatment: HERACLIO at 0731
[2016-04-09] MEDS ORDERED: PHENADOZ25 MG PR (08:51)
--- NOTE | 2016-04-09 08:53 | CONSULT NOTE ---
Standard Demographics Patient Demo Date of Consultation: 04/09/16 Referring Provider: Renato Lim MD Reason for Consultation: Diverticulitis PRIMARY DIAGNOSIS: DIVERTICULITIS Allergies: Coded Allergies: Penicillins (03/30/16) Sulfa (Sulfonamide Antibiotics) (03/30/16) History of Present Illness Chief Complaint: Abdominal Pain, Vomiting History of Present Illness: Patient is a 70-year-old white male. He had presented to the emergency department on 03/30/16 with abdominal pain and nausea. Workup at that time revealed findings consistent with diverticulitis with inflammatory process adjacent to the sigmoid colon and he was admitted for 2 days on intravenous antibiotics with improvement of his symptoms and was discharged on 04/01/16. He returned to the emergency department yesterday evening due to intractable vomiting. He underwent follow-up CT scan. This reveals findings of abdominal abscess in the lower mid abdomen measuring 5 cm. This was felt to be likely diverticular abscess. He was admitted for inpatient management. Surgical consultation was obtained today. Patient does state that he had previously had similar episode of presumed diverticulitis about 6 months ago treated with oral doxycycline. Past Medical History Denies: CAD. Surgical History Previous Surgery?Y LEFT THUMB AND WRIST TONSILS Allergies Coded Allergies: Penicillins (03/30/16) Sulfa (Sulfonamide Antibiotics) (03/30/16) Medications: Active Scripts Ciprofloxacin HCl (Cipro 500MG TAB) 500 MG PO BID #20 TAB Prov: 04/01/16 METRONIDAZOLE (Metronidazole) 500 MG PO TID #30 TAB Prov: 04/01/16 ACETAMINOPHEN WITH CODEINE (Tylenol With Codeine #3 Tablet) 1-2 TAB PO Q6HP PRN pain #30 TAB Prov: 04/01/16 Reported Medications Promethazine Hcl (Phenadoz) 25 MG CO PRN PRN NAUSEA 8 Days Smoking Hx Tobacco: Yes Smoker: Current Every Day Smoker Type: Cigarettes Packs/day: < 1 Pack Are you/the child exposed to second-hand smoke: Yes Alcohol Alcohol: No Hx of Drug Use Drug Use? No Review of Systems Constitutional Positive for: chills. Skin No: laceration. Immune/allergy No: anaphalaxis. Eyes No: vision loss. ENT No: hearing loss. Respiratory No: shortness of air. Cardiovascular No: chest pain. GI Positive for: abdomen, nausea, vomitting. (male) No: hematuria. Musculoskeletal No: extremity pain. Heme No: bleeding. Endocrine No: cold intolerance. Neurological No: change in LOC. Psychiatric Positive for: anxious. Physical Exam Exam General appearance no acute distress, alert, oriented Respiratory clear to auscultation Cardiovascular regular rate and rhythm Abdomen distended Findings/Data Examination his abdomen is slightly distended but soft. He has hypoactive bowel sounds. He has tenderness in the lower midabdomen and LEFT lower quadrant. There is focal guarding. Plan Plan: Patient is findings likely of complicated diverticulitis. I reviewed his CT scan. This will need radiographically guided drainage. If this is not able to be performed at this institution patient will require transfer. If this is able to be successfully drained and his infection controlled he may ultimately continue with outpatient management and potentially proceed with colonoscopy in several weeks. However, if his symptoms remain refractory to nonoperative management could require operative intervention with drainage and possible resection with ostomy. at [id number]
[2016-04-09 08:59] VITALS: BP 158/86
--- NOTE | 2016-04-09 13:27 | ACUTE CARE PROGRESS NOTE (QUA) ---
Progress note: - Discussed and reviewed films with radiology. Do not feel comfortable placing drain. Discussed case with [facility], Dr. Barragan, who has agreed to accept the patient. Arrangements are to be made for transfer. at [phone]
[2016-04-09 16:02] VITALS: BP 178/96
[2016-04-09 19:07] VITALS: BP 178/96
--- NOTE | 2016-04-26 13:27 | Discharge Summary ---
Demographics Admit date: 04/08/16 Discharge date: 04/09/16 Discharge diagnoses Problem List 1. SBO (small bowel obstruction) 2. Umbilical hernia 3. Colonic diverticular abscess History of present illness History of present illness 70-year-old male with recent 48 hour hospitalization at [facility] for diverticulitis return to the emergency department on April 08 with complaint of increasing abdominal pain and distention with multiple episodes of vomiting throughout the day when trying to take his antibiotics for diverticulitis. Workup in the emergency department revealed a small bowel obstruction in addition to a diverticular abscess. Patient has been readmitted for IV antibiotics and bowel rest. He tells me that he has not had a bowel movement in 48 hours and denies flatus during this time as well. Vomiting developed over the last 24 hours. Patient was admitted and surgical consult was obtained. Patient was seen by Dr. Wilhelm. Dr. Wilhelm spoke with radiology regarding possibility of percutaneous abscess drainage via CT guidance. [facility] did not feel this was capable at this facility. Dr. Wilhelm then arranged transfer to for further treatemetn of diverticular abscess via CT guided intervention Medications Medications: Discharge meds are as noted. Follow up Follow up in office in: 7 DAYS with: Renato Lim MD at 1327
== END 2016-04-09 19:20 | disposition short-term general hospital (02) | DRG 392 ==
LOC: ER 20:34 → 2ND 22:13 → ER 22:13 → 2ND 23:02
PROVIDERS: Emergency Medicine
DX: K57.80 Diverticulitis of intestine, part unspecified, with perforation and abscess without bleeding (principal); Z72.0 Tobacco use
CPT/HCPCS: J2405